=== PATIENT | male | born 1965 | race Caucasian/White ===

== ENCOUNTER 2019-11-21 13:16 | Emergency (ER) | payer OTHER, SELFPAY ==
--- NOTE | ~2019-11-21 | XR_ITS ---
EXAMINATION: XR chest 2V 11/21/2019 14:13 INDICATION: Chest congestion and cough. PROCEDURE: 2 view chest COMPARISON: No prior studies for comparison. FINDINGS: There is left basilar atelectasis. No focal pneumonia, edema, pleural effusion or pneumotho rax. The cardiomediastinal silhouette is within normal limits. There is mild scoliosis. There are tapia rgical clips in the left upper abdomen. IMPRESSION: 1: Left basilar atelectasis. Reviewed, dictated and finalized at location A.
[2019-11-21 13:35] VITALS: BP 130/79; PULSE 85; RESP 18; TEMP 36.1; O2SAT 99
--- NOTE | 2019-11-21 15:07 | ED.GENADULT ---
HPI - General Adult General Chief complaint: Upper Respiratory Infection Stated complaint: cough, congestion Time Seen by Provider: 11/21/19 14:18 Source: patient Mode of arrival: ambulatory Limitations: no limitations History of Present Illness HPI narrative: Patient is a 54-year-old male who presents to emergency department for evaluation of cough for the last 3 weeks patient has been tested for COVID which was negative patient continues to have nonproductive cough also notes sinus congestion and rhinorrhea has been taking some [id number] medications prescribed by primary care to include Flonase and Zyrtec with minimal improvement on arrival patient in no distress denies fever chills nausea vomiting Related Data Allergies Allergy/AdvReac Type Severity Reaction Status Date / Time No Known Allergies Allergy Verified 11/21/19 13:38 Review of Systems Review of Systems: All systems reviewed & are unremarkable except as noted in HPI and below PMFSH Past Medical History Medical History Constipation Eczema Heartburn Hemorrhoids Surgical History Surgical History H/O hemorrhoidectomy 2003 H/O kidney donation 2010 H/O wisdom tooth extraction 1992 S/P scrotal varicocelectomy 1995 Family History Family History (Updated 05/09/19 @ 11:24 by Pooja Talbot) Mother Family history of restless legs syndrome Father Colon cancer Other Carcinoma of colon Social History Social History Smoking status: Never smoker Alcohol intake: current Exam Narrative: Exam Narrative: GENERAL: Well-appearing, well-nourished, and in no acute distress. HEAD: Normocephalic, atraumatic. EYES: PERRLA and EOMI. ENT: Nares clear, no rhinorrhea or epistaxis. Mucous membranes moist. Oropharynx without tonsillar hypertrophy exudate or other lesions. CHEST: Clear to auscultation. No respiratory distress. No wheezes rales or rhonchi HEART: Regular rate and rhythm. No murmur heard. Normal peripheral pulses. ABDOMEN: Soft, nontender, nondistended EXTREMITIES: Normal range of motion. No edema. SKIN: Warm, dry, no rash. NEURO: No focal deficits. Alert and oriented x3. Cranial nerves II through XII grossly intact PSYCH: Normal mood and affect. Course Course Emergency Course: Patient in the room in no distress aware of case findings treatment plan diagnosis Vital Signs Vital signs: Vital Signs Temperature 96.9 F L 11/21/19 13:35 Pulse Rate 85 11/21/19 13:35 Respiratory Rate 18 11/21/19 13:35 Blood Pressure 130/79 11/21/19 13:35 Pulse Oximetry 99 11/21/19 13:35 Temperature 96.9 F L 11/21/19 13:35 Pulse Rate 85 11/21/19 13:35 Respiratory Rate 18 11/21/19 13:35 Blood Pressure 130/79 11/21/19 13:35 Pulse Oximetry 99 11/21/19 13:35 Medical Decision Making MDM Narrative Medical decision making narrative: Patient in the room in no distress aware of case findings treatment plan and diagnosis Vital Signs Vital Signs: Vital Signs Temperature 96.9 F L 11/21/19 13:35 Pulse Rate 85 11/21/19 13:35 Respiratory Rate 18 11/21/19 13:35 Blood Pressure 130/79 11/21/19 13:35 Pulse Oximetry 99 11/21/19 13:35 Temperature 96.9 F L 11/21/19 13:35 Pulse Rate 85 11/21/19 13:35 Respiratory Rate 18 11/21/19 13:35 Blood Pressure 130/79 11/21/19 13:35 Pulse Oximetry 99 11/21/19 13:35 Discharge Plan Discharge Clinical Impression: URI (upper respiratory infection) Patient Disposition: Home, Self-Care Condition: Stable Instructions: Antibiotic Form, Upper Respiratory Infection (ED) Additional Instructions: Follow up with your primary care provider within 1-2 days to set up for reevaluation. Go to ER for shortness of breath, difficulty breathing, chest pain, fever/chills, weakness, nauseau/vom
[2019-11-21 15:56] VITALS: BP 121/77; PULSE 93; RESP 20; O2SAT 98
== END 2019-11-21 15:58 | disposition home or self-care (01) ==
PROVIDERS: Emergency Provider Emergency Medicine; PCP Internal Medicine
DX: J06.9 Acute upper respiratory infection, unspecified (principal)
CPT/HCPCS: 71046; 99283

== ENCOUNTER 2022-10-14 15:47 | Emergency (ER) | payer OTHER, SELFPAY ==
--- NOTE | 2022-10-14 15:52 | ED.WOUNDLAC ---
HPI - Wound/Laceration General Chief Complaint: Wound/Laceration Stated Complaint: FINGER LACERATION Time Seen by Provider: 10/14/22 15:55 Source: patient Mode of arrival: ambulatory Limitations: no limitations History of Present Illness HPI narrative: Patient is a 57-year-old male who presents with laceration to right 3rd digit. Patient states he was working on a car and sliced finger while trying to open the garcia. Patient states pain has lessened since initial injury. States he has normal sensation and movement but cannot get bleeding to stop. Has not taken anything for pain. Reports tetanus shot is up to date. Related Data Allergies Allergy/AdvReac Type Severity Reaction Status Date / Time No Known Allergies Allergy Verified 10/14/22 15:58 Review of Systems Review of Systems: All systems reviewed & are unremarkable except as noted in HPI and below Constitutional: Constitutional: Denies body ache(s), Denies chills, Denies fatigue, Denies fever(s), Denies headache(s), Denies malaise and Denies weakness Eyes: Eyes: Denies blurry vision, Denies irritation and Denies loss of vision ENT: Denies otalgia, Denies headache(s), Denies nasal discharge, Denies sinus pain and Denies sore throat Cardiovascular: Cardiovascular: Denies chest pain, Denies irregular heart rhythm and Denies dyspnea Respiratory: Respiratory: Denies dyspnea Gastrointestinal: Gastrointestinal: Denies abdominal pain, Denies melena, Denies hematochezia, Denies diarrhea, Denies nausea and Denies vomiting Musculoskeletal: Musculoskeletal: Denies back pain, Denies myalgias and Denies arthralgias Integumentary/Breasts: Skin/Breast: Denies pruritus, Denies rash and Reports wounds Neurologic: Denies headache(s), Denies loss of vision and Denies weakness Psychiatric: Psychiatric: Reports no additional psychiatric complaints Endocrine: Endocrine: Denies fatigue PMF Past Medical History Medical History (Updated 10/14/22 @ 16:03 by Gila White APRN) Constipation Eczema Heartburn Hemorrhoids Surgical History Surgical History H/O hemorrhoidectomy 2003 H/O kidney donation 2010 H/O wisdom tooth extraction 1992 S/P scrotal varicocelectomy 1995 Family History Family History Mother Family history of restless legs syndrome Father Colon cancer Other Carcinoma of colon Social History Social History Smoking status: Never smoker Alcohol intake: current Comments At time of signature, agree with nursing past medical, surgical, social and family history. There is no relevant family history pertinent to the presenting complaint. Exam Const: General: cooperative, healthy appearing, comfortable, no acute distress and well nourished Nutritional Appearance: well nourished Orientation/consciousness: patient oriented x3 Limitations: no limitations HENMT: Head: normal to inspection, normocephalic and atraumatic Ears: hearing grossly normal bilaterally and external ears normal Face/Nose/Sinus: Normal external nose present, normal facial exam and face symmetric Face and sinus: normal facial exam and face symmetric Mouth: Yes lip normal Eyes: General: appearance normal, both eyes and all related structures Alignment and Position: alignment normal and position normal Periorbital: periorbital findings normal Eyelids: eyelids normal Pupils: Equal, round and reactive pupils present EOM: EOMs intact bilaterally Neck: Neck: normal visual inspection, full ROM and supple Chest: Chest palpation & inspection: normal inspection of the chest Resp: Effort & Inspection: normal respiratory effort and able to speak in complete sentences Auscultation: clear to auscultation bilaterally Cardio: Rate: regular rate Rhythm: regular rhythm Heart sounds: S1 normal heart sound present
[2022-10-14 15:55] VITALS: BP 124/97; PULSE 86; RESP 16; TEMP 36.2; O2SAT 98
== END 2022-10-14 16:05 | disposition home or self-care (01) ==
PROVIDERS: Emergency Provider Nurse Practitioner Family; PCP Internal Medicine
DX: S61.212A Laceration without foreign body of right middle finger without damage to nail, initial encounter (principal); W45.8XXA Other foreign body or object entering through skin, initial encounter
CPT/HCPCS: 12001; 99212; G0463

== ENCOUNTER 2023-03-22 08:15 | Emergency (ER) | payer OTHER, SELFPAY ==
[2023-03-22 08:24] VITALS: BP 125/85; PULSE 93; RESP 16; TEMP 36.4; O2SAT 98
--- NOTE | 2023-03-22 08:52 | ED.URI ---
HPI - URI/Sore Throat General Chief Complaint: Upper Respiratory Infection Stated Complaint: SORE THROAT/+ COVID Time Seen by Provider: 03/22/23 08:47 Source: patient Mode of arrival: ambulatory Limitations: no limitations History of Present Illness HPI Narrative: Patient presents today complaining of 3 day history of cough, congestion, sore throat, rhinorrhea. He was diagnosed with COVID-19. Patient is here to get tested for strep throat due to his sore throat. He has been taking [id number] medication for his symptoms. Denies chest pain, shortness of breath. Patient stopped his Paxlovid after 1 dose due to diarrhea. Related Data Allergies Allergy/AdvReac Type Severity Reaction Status Date / Time No Known Allergies Allergy Verified 03/22/23 08:33 Review of Systems Review of Systems: CONSTITUTIONAL: Denies body aches, fever, chills, or sweats. EYES: Denies visual changes, redness, or discharge. ENT: Denies otalgia.+ sore throat, congestion, rhinorrhea CARDIOVASCULAR: Denies chest pain, palpitations, or edema. RESPIRATORY: Denies dyspnea.+ cough GASTROINTESTINAL: Denies abdominal pain, nausea, vomiting, or diarrhea. GENITOURINARY: Denies dysuria or hematuria. SKIN: Denies rash, itching, or wounds. MUSCULOSKELETAL: Denies back pain, joint pain, or myalgia. NEUROLOGIC: Denies headache, numbness, tingling, or weakness. PSYCH: Denies depression or anxiety. [facility], [facility] Past Medical History Medical History Constipation Eczema Heartburn Hemorrhoids Surgical History Surgical History H/O hemorrhoidectomy 2003 H/O kidney donation 2010 H/O wisdom tooth extraction 1992 S/P scrotal varicocelectomy 1995 Family History Family History Mother Family history of restless legs syndrome Father Colon cancer Other Carcinoma of colon Social History Social History Smoking status: Never smoker Alcohol intake: current Comments At time of signature, I have reviewed and agree with nursing past medical, surgical, social and family history unless otherwise noted. Please see nursing chart for further information. There is no relevant family history pertinent to the presenting complaint Exam Narrative: GENERAL: Mildly ill-appearing, well-nourished, and in no acute distress. HEAD: Normocephalic, atraumatic. EYES: EOMI. No redness or drainage. Conjunctivae normal. ENT: Mucous membranes pink and moist. Nares congested with rhinorrhea. TMs normal bilaterally. Throat normal. Uvula midline. NECK: Normal AROM. Supple. No lymphadenopathy. CHEST: No respiratory distress. Clear to auscultation. HEART: Regular rate and rhythm. No murmur appreciated. EXTREMITIES: Normal range of motion. No edema. SKIN: Warm, dry, no rash. Capillary refill normal. Normal skin turgor. NEURO: No focal deficits. Alert and oriented x3. Gait steady. PSYCH: Normal affect. No signs of depression or anxiety. Course Course Level of Care: Express Care Visit Vital Signs Vital signs: Vital Signs Temperature 97.6 F 03/22/23 08:24 Pulse Rate 93 03/22/23 08:24 Respiratory Rate 16 03/22/23 08:24 Blood Pressure 125/85 03/22/23 08:24 Pulse Oximetry 98 03/22/23 08:24 Temperature 97.6 F 03/22/23 08:24 Pulse Rate 93 03/22/23 08:24 Respiratory Rate 16 03/22/23 08:24 Blood Pressure 125/85 03/22/23 08:24 Pulse Oximetry 98 03/22/23 08:24 Oxygen Delivery Room Air 03/22/23 08:27 Reviewed MDM - URI/Sore Throat MDM Narrative Medical decision making narrative: Rapid strep negative. Discussed results with patient. Instructed him to continue [id number] medication for his COVID symptoms and sore throat. Anticipatory guidance given. Differential Diagno
== END 2023-03-22 08:59 | disposition home or self-care (01) ==
PROVIDERS: Emergency Provider Nurse Practitioner; PCP Internal Medicine
DX: U07.1 COVID-19 (principal)
CPT/HCPCS: 87081; 87880; 99213; G0463

== ENCOUNTER 2023-03-31 08:02 | Outpatient (CLI) | payer OTHER, SELFPAY ==
[2023-03-31 19:02] LABS: Basophils Percent Auto 0.6 % (0.2-1.2); Eosinophils Absolute Auto 0.1 K/mm3 (0-0.3); Hematocrit 46.3 % (42.0-52.0); Hemoglobin 15.1 g/dL (14.0-18.0); Immature Granulocyte Absolute 0.02 K/mm3 (0.00-0.031); Immature Granulocyte Percent A 0.4 % (0-0.5); Lymphocytes Absolute Auto 1.68 K/mm3 (0.9-3.2); Lymphocytes Percent Auto 33.5 % (18.3-44.2); Mean Corpuscular HGB Conc 32.6 g/dl (32-36); Mean Corpuscular Hemoglobin 29.1 pg (26-34); Mean Corpuscular Volume 89.2 fl (80-100); Monocytes Absolute Auto 0.4 K/mm3 (0.1-0.6); Monocytes Percent Auto 8.8 % (2.6-8.5); Neutrophils Absolute Auto 2.7 K/mm3 (1.3-6.7); Neutrophils Percent Auto 54.7 % (45.5-73.1); Platelet Count Result 365 k/mm3 (150-375); Red Blood Count 5.19 M/mm3 (4.6-6.20); Red Cell Distribution Width 13.1 % (11.5-14.5)
[2023-03-31 19:34] LABS: Alanine Aminotransferase 38 U/L (6-50); Albumin Level 4.2 g/dL (3.5-5.1); Alkaline Phosphatase 90 U/L (38-126); Anion Gap 4 mmol/L (8-16); Aspartate Amino Transferase 44 U/L (17-59); Bilirubin,Total 0.9 mg/dL (0.2-1.3); Blood Urea Nitrogen 11 mg/dL (9-20); Calcium 9.6 mg/dL (8.4-10.2); Carbon Dioxide 31 mmol/L (22-30); Chloride 103 mmol/L (98-107); Cholesterol 192 mg/dL (0-200); Estimated Glomerular Filt Rate > 60; Glucose 79 mg/dL (65-110); HDL Direct 41 mg/dL; Potassium 4.2 mmol/L (3.4-5.0); Sodium 138 mmol/L (137-145); Triglycerides 169 mg/dL (<150)
[2023-03-31 19:45] LABS: LDL Cholesterol Direct 117 mg/dL
[2023-03-31 20:05] LABS: Prostate Specific Antigen 0.8 ng/mL (< OR = 4.0)
== END 2023-03-31 08:03 | disposition home or self-care (01) ==
LOC: ANHGOSHLAB 08:04
PROVIDERS: PCP Internal Medicine; Visit Provider Nurse Practitioner
DX: Z13.29 Encounter for screening for other suspected endocrine disorder (principal); Z13.220 Encounter for screening for lipoid disorders; Z12.5 Encounter for screening for malignant neoplasm of prostate
CPT/HCPCS: 36415; 80053; 80061; 84153; 85025; G0103

== ENCOUNTER 2023-07-07 00:40 | Day surgery (SDC) | payer OTHER, SELFPAY ==
[2023-06-22 09:14] VITALS: BMI 24.5
[2023-07-07 09:12] VITALS: BP 122/83; PULSE 100; RESP 16; TEMP 36.2; O2SAT 98
[2023-07-07] MEDS: LACTATED RINGERS 1,000 ML 150 ML IV CONT (09:19)
--- NOTE | 2023-07-07 10:17 | WPDANESEPPF ---
Anes - Initial Pre Proc Eval Procedure: Operation Date: 07/07/23 10:30 Proposed Procedures p Screening Colonoscopy - Neeraj Resendez MD Date/Time: 07/07/23 10:17 Surgeon: Neeraj Resendez MD Pre Op Diagnosis: neoplasm screening Patient Data Age: 58 Gender: M Height: 1.83 m Weight: 81.8 kg Last Vital Signs Temp 97.2 F L 07/07/23 09:12 Pulse 100 07/07/23 09:12 Resp 16 07/07/23 09:12 BP 122/83 07/07/23 09:12 Pulse Ox 98 07/07/23 09:12 O2 Del Method Room Air 07/07/23 09:12 Allergies Allergy/AdvReac Type Severity Reaction Status Date / Time No Known Allergies Allergy Verified 07/07/23 09:10 Home Medications Medication Instructions Recorded Confirmed Type omeprazole 20 mg tablet,delayed 20 mg PO DAILY #30 tabs 12/13/19 07/07/23 Rx release Patient hx anesthesia problems: none Family hx anesthesia problems: none Results Review: All pre-operative results and documents have been reviewed as part of the pre-operative evaluation. [facility] Past Medical History Medical History Constipation Eczema Heartburn Hemorrhoids Surgical History Surgical History H/O hemorrhoidectomy 2003 H/O kidney donation 2010 H/O wisdom tooth extraction 1992 S/P scrotal varicocelectomy 1995 Family History Family History Mother Family history of restless legs syndrome Father Colon cancer Other Carcinoma of colon Social History Social History (Updated 03/31/23 @ 08:31 by Dee Dee Bell CMA) Smoking status: Never smoker Alcohol intake: current Drinks per week: 2 Substance use: never Do You Feel Safe in your Home?: Yes Current Housing: Decline to Answer Concerned About Future Housing: Decline to Answer Difficulty Paying Gas/Electric Bills: Decline to Answer Difficulty Paying for Meds: Decline to Answer Currently Unemployed: Decline to Answer Difficulty w/ Childcare or Family Care: Decline to Answer Living arrangements: with family Spiritual care concerns: No Anes - Eval Final PreProcedure Day of Procedure 07/07/23 10:17 Patient weight: normal Heart: regular rate and rhythm Lungs: clear to auscultation Airway: Mallampati scale class II Neurological: alert and oriented Last oral intake: >/= 8 hours ASA classification: II Emergent: no Anesthetic plan: proceed Anesthesia type and monitoring: general GIVS and standard monitoring Results Review: All pre-operative results and documents have been reviewed as part of the pre-operative evaluation. Informed Consent: The patient's anesthetic plan and its attendant risks and benefits were discussed with the patient/family/POA. Questions were solicited and answers provided to the satisfaction of the patient/family/POA.
--- NOTE | 2023-07-07 10:32 | PM.HPGS ---
History of Present Illness History of Present Illness Consent: Risks, benefits, and alternatives have been discussed and questions answered. Patient agrees to proceed with procedure. Chief complaint: neoplasm screening Narrative: Myles Alves is a 58 year old male here for colonoscopy, last one 8 years ago. Father had colon cancer Review of Systems Review of Systems: All systems reviewed & are unremarkable except as noted in HPI and below PMFSH Past Medical History Medical History (Updated 07/07/23 @ 10:35 by Neeraj Resendez MD) Constipation Eczema Family history of colon cancer in father Heartburn Hemorrhoids Surgical History Surgical History H/O hemorrhoidectomy 2003 H/O kidney donation 2010 H/O wisdom tooth extraction 1992 S/P scrotal varicocelectomy 1995 Family History Family History Mother Family history of restless legs syndrome Father Colon cancer Other Carcinoma of colon Social History Social History (Updated 03/31/23 @ 08:31 by Dee Dee Bell CMA) Smoking status: Never smoker Alcohol intake: current Drinks per week: 2 Substance use: never Do You Feel Safe in your Home?: Yes Current Housing: Decline to Answer Concerned About Future Housing: Decline to Answer Difficulty Paying Gas/Electric Bills: Decline to Answer Difficulty Paying for Meds: Decline to Answer Currently Unemployed: Decline to Answer Difficulty w/ Childcare or Family Care: Decline to Answer Living arrangements: with family Spiritual care concerns: No Meds Home Medications and Allergies Home Medications Medication Instructions Recorded Confirmed Type omeprazole 20 mg tablet,delayed 20 mg PO DAILY #30 tabs 12/13/19 07/07/23 Rx release Allergies Allergy/AdvReac Type Severity Reaction Status Date / Time No Known Allergies Allergy Verified 07/07/23 09:10 Vital Signs Vital Signs - 24 hr 07/07/23 09:12 Temperature 97.2 F L Pulse Rate 100 Respiratory Rate 16 Blood Pressure 122/83 Pulse Oximetry 98 Oxygen Delivery Room Air Exam Const: General: comfortable and no acute distress HENMT: Face/Nose/Sinus: Normal nares present Eyes: General: appearance normal, both eyes and all related structures Neck: Neck: no JVD Resp: Auscultation: clear to auscultation bilaterally Cardio: Rate: regular rate Rhythm: regular rhythm GI: Inspection: non-distended GI Palp: Yes Soft to palpation Skin: General skin exam: normal color Neuro: General: gait normal Speech: normal speech Extrem: General: normal to inspection Psych: Mental Status: mental status grossly normal Assessment and Plan Assessment and plan (1) Family history of colon cancer in father: Code(s): Z80.0 - Family history of malignant neoplasm of digestive organs Status: Acute Assessment and Plan: colonoscopy
[2023-07-07 10:51] VITALS: BP 119/71; PULSE 89; RESP 16; O2SAT 99
[2023-07-07 11:01] VITALS: BP 111/72; PULSE 82; RESP 16; O2SAT 98
== END 2023-07-07 11:26 | disposition home or self-care (01) ==
PROVIDERS: PCP Internal Medicine; Visit Provider Internal Medicine Gastroenterology
PROC: 0DJD8ZZ Inspection of Lower Intestinal Tract, Via Natural or Artificial Opening Endoscopic (ICD-10-PCS; CPT 45378; principal; 2023-07-07 10:30)
DX: Z12.11 Encounter for screening for malignant neoplasm of colon (principal); D12.3 Benign neoplasm of transverse colon; K64.8 Other hemorrhoids; Z80.0 Family history of malignant neoplasm of digestive organs
CPT/HCPCS: 45380; 88305; J2704; J7120